=== PATIENT | female | born 1970 | race Caucasian/White ===

== ENCOUNTER → 2023-02-04 09:13 | Outpatient (BNVA) | payer SELFPAY | PROVIDERS: Visit Provider Nurse Practitioner Family | DX: R30.0 Dysuria (principal) | CPT/HCPCS: 81000; 87077; 87086; 87184 ==

== ENCOUNTER → 2023-03-01 12:22 | Outpatient (BNVA) | payer SELFPAY | PROVIDERS: Visit Provider Nurse Practitioner | DX: R39.9 Unspecified symptoms and signs involving the genitourinary system (principal) | CPT/HCPCS: 81000; 87077; 87086; 87184 ==

== ENCOUNTER → 2023-04-28 14:49 | Outpatient (BNVA) | payer SELFPAY | PROVIDERS: Visit Provider Nurse Practitioner Family | DX: R30.0 Dysuria (principal) | CPT/HCPCS: 81000 ==

== ENCOUNTER → 2023-07-09 10:17 | Outpatient (BNVA) | payer SELFPAY | PROVIDERS: Visit Provider Family Medicine | DX: R39.9 Unspecified symptoms and signs involving the genitourinary system (principal); N39.0 Urinary tract infection, site not specified; N30.00 Acute cystitis without hematuria | CPT/HCPCS: 81000 ==

== ENCOUNTER → 2023-08-05 14:14 | Outpatient (BNVA) | payer SELFPAY | PROVIDERS: Visit Provider Emergency Medicine | DX: R30.0 Dysuria (principal); N10 Acute pyelonephritis | CPT/HCPCS: 81000 ==

== ENCOUNTER → 2023-08-10 15:48 | Outpatient (BNVA) | payer SELFPAY | PROVIDERS: Visit Provider Registered Nurse Neonatal Intensive Care | DX: R39.15 Urgency of urination (principal); N30.00 Acute cystitis without hematuria | CPT/HCPCS: 81000; 87077; 87086; 87184 ==

== ENCOUNTER → 2024-04-11 14:27 | Outpatient (BNVA) | payer SELFPAY | DX: R39.9 Unspecified symptoms and signs involving the genitourinary system (principal) | CPT/HCPCS: 81000; 87086 ==

== ENCOUNTER → 2024-07-06 14:25 | Outpatient (BNVA) | payer OTHER, SELFPAY | PROVIDERS: Visit Provider Nurse Practitioner Family | DX: R39.9 Unspecified symptoms and signs involving the genitourinary system (principal) | CPT/HCPCS: 81000 ==

== ENCOUNTER 2024-07-18 19:40 | Emergency (ER) | payer OTHER, SELFPAY ==
[2024-07-18 19:46] VITALS: BP 172/121; PULSE 88; TEMP 37.7; O2SAT 97; BMI 29.8
[2024-07-18 21:53] VITALS: BP 148/92; PULSE 84; O2SAT 97
--- NOTE | 2024-07-18 21:57 | ED_ITS ---
HPI - Headache 2 General: Chief Complaint: Headache Stated Complaint: n/v migrane lap band Time Seen by Provider: 07/18/24 21:33 Source: patient Mode of arrival: ambulatory Limitations: no limitations History of Present Illness: Patient is a 54-year-old female who presents to the emergency department complaining of headache for the past couple of days. Also notes high fevers. She states she had a lap band procedure in 2017, has not thrown up since a couple of days ago when she threw up due to the pain in her head. Notes consistent nausea, however has been able to keep down food and drink. She states the pain wraps around her head like a band, and is behind her eyes. She denies any neck pain or recent trauma. Reporting minor blurred vision, but thinks it may be due to her not getting any sleep from the pain. Pain has been constant, no focal neurological deficits such as paresthesias or paralysis in her extremities. She has taken Tylenol and Benadryl, has not gotten much relief. No known history of migraines or tension headaches. She does not state that anything specifically makes it better, does state it seems to be worsened by noise. Patient is also diabetic. MD elicited complaint: headache Onset description: suddenly Location: band-like Severity: moderate Quality & Timing: throbbing Exacerbating factors: noise Relieving factors: nothing Context: occurred at rest Associated symptoms: Reports fever(s), nausea and vomiting; Deny chest pain, lightheadedness or rash Treatments prior to arrival: acetaminophen and other (Benadryl) Related Data Previous Rx's Medication Instructions Recorded fluconazole 150 mg tablet 150 mg PO Q72H 3 days #1 tab 07/06/24 sulfamethoxazole 800 1 tab PO BID #14 tabs 07/06/24 mg-trimethoprim 160 mg tablet (Bactrim DS) Allergies Allergy/AdvReac Type Severity Reaction Status Date / Time crab Allergy ALGY-Hives Verified 07/18/24 19:51 Penicillins Allergy ALGY-Anaphy Verified 07/18/24 19:51 laxis Review of Systems 2 General: Reports: 10 or more systems reviewed and unremarkable except in HPI and below Const: Reports: fever(s); Denies: chills or fatigue Eyes: Reports: blurry vision ENMT: Denies: throat pain, ear or mastoid pain or nasal discharge Card: Denies: chest pain, palpitations, swelling of feet/ankles or lightheadedness Resp: Denies: dyspnea, productive cough or wheezing GI: Reports: nausea and vomiting; Denies: abdominal pain, diarrhea or constipation : Denies: flank pain, difficulty voiding, dysuria or urinary frequency Musc: Denies: neck pain, back pain or joint pain Skin/Breast: Denies: rash Neuro: Reports: headache(s); Denies: numbness in extremities or weakness in extremities PFSH ED 2 PFSH: Social History Smoking and tobacco/nicotine status: former use of tobacco/nicotine Physical Exam 2 Const: COMMON NORMALS: no acute distress, patient oriented x3 and no limitations GENERAL APPEARANCE: cooperative, comfortable and well developed ORIENTATION/CONSCIOUSNESS: Yes awake, Yes oriented to person, Yes oriented to place and Yes oriented to time HENMT: COMMON NORMALS: normocephalic, atraumatic, hearing grossly normal bilaterally and moist oral mucous membranes HEAD & SCALP: normocephalic and atraumatic Eye: COMMON NORMALS: Equal, round and reactive pupils present, EOMs intact bilaterally and conjunctivae normal CONJUNCTIVA: Yes conjunctivae normal P UPIL: Yes Equal, round and reactive pupils present Neck/C-Spine: COMMON NORMALS: full ROM, supple and no JVD CERVICAL SPINE: Y es cervical ROM normal Resp: COMMON NORMALS: normal respiratory effort, No retractions, No use of accessory muscles and clear to auscultation bilaterally AUSCULTATION: clear to auscultation bilaterally Cardio: COMMON NORMALS: no JVD, regular rate, regular rhythm, No clicks present (Cardio), No murmurs present (Cardio) and No rub (Cardio) RATE: r egular rate RHYTHM: regular rhythm Extremity: COMMON NORMALS: normal to inspection, full ROM and capillary refill normal Neuro: COMMON NORMALS: patient oriented x3, CN's II-XII intact bilaterally, moves all extremities, no focal motor deficits and no sensory deficits noted SENSORIUM/ORIENTATION: Yes oriented to person, Yes oriented to place and Yes oriented to time Skin: COMMON NORMALS: no rashes or lesions noted GENERAL SKIN EXAM: no rashes or lesions noted Course 2 Vital Signs: Vital signs: Vital Signs Temperature 99.9 F H 07/18/24 19:46 Pulse Rate 84 07/18/24 21:53 Blood Pressure 148/92 07/18/24 21:53 Pulse Oximetry 97 07/18/24 21:53 Oxygen Delivery Me thod Room Air 07/18/24 19:46 MDM - Headache Medical Decision Making Patient presented with headache for the past 2 days, neurologically intact on physical exam, she is diabetic. Gave her migraine cocktail, she notes significant improvement. Labs were unremarkable, swab for flu COVID RSV was negative though likely she may have a viral illness due to reported elevated temperatures at home and temp of 99.9 here. Do not suspect anything intracranial, this is likely migraine headache versus tension headache and will have her follow-up with primary care for reevaluation and return with any persistence of headache and we will CT her at that time as indicated. Patient agrees with this plan, discharge at this time. Lab Data 07/18/24 21:45 07/18/24 21:45 Laboratory Results WBC 5.69 10^3/uL (3.29-11.43) 07/18/24 21:45 RBC 5.28 10^6/uL (3.85-5.65) 07/18/24 21:45 Hgb 15.30 g/dL (11.27-16.99) 07/18/24 21:45 Hct 44.1 % (36-47) 07/18/24 21:45 MCV 83.5 fl (85-98) L 07/18/24 21:45 MCH 29.0 pg (27-33) 07/18/24 21:45 MCHC 34.7 g/dL (30-55) 07/18/24 21:45 RDW 12.3 % (12.1-15.1) 07/18/24 21:45 Plt Count 197 10^3/cmm (157-399) 07/18/24 21:45 MPV 10.0 fL (7.4-10.4) 07/18/24 21:45 Neut % (Auto) 87.8 % 07/18/24 21:45 Lymph % (Auto) 7.9 % 07/18/24 21:45 Archuleta % (Auto) 3.9 % 07/18/24 21:45 Eos % (Auto) 0.0 % 07/18/24 21:45 Baso % (Auto) 0.2 % 07/18/24 21:45 Neut # (Auto) 5.00 10^3/uL (1.8-7.7) 07/18/24 21:45 Lymph # (Auto) 0.5 10^3/uL (0.8-4.8) L 07/18/24 21:45 Archuleta # (Auto) 0.2 10^3/uL (0.2-0.9) 07/18/24 21:45 Eos # (Auto) 0.0 10^3/uL (0.0-0.8) 07/18/24 21:45 Baso # (Auto) 0.0 10^3/uL (0.0-0.1) 07/18/24 21:45 Nucleated RBC % (auto) 0 % 07/18/24 21:45 Nucleated RBCs # 0.0 /100WBC 07/18/24 21:45 Sodium 133 mmol/L (136-145) L 07/18/24 21:45 Potassium 3.5 mmol/L (3.5-5.1) 07/18/24 21:45 Chloride 94 mmol/L (98-107) L 07/18/24 21:45 Carbon Dioxide 27 mmol/L (22-29) 07/18/24 21:45 Anion Gap 15.5 (5-19) 07/18/24 21:45 BUN 9 mg/dL (6-20) 07/18/24 21:45 Creatinine 0.5 mg/dL (0.5-0.9) 07/18/24 21:45 GFR Calculation 127.6 mL/min (90-130) 07/18/24 21:45 Glucose 155 mg/dL (65-115) H 07/18/24 21:45 Calculated Osmolality 278 mOsm/kg (285-295) L 07/18/24 21:45 Calcium 9.4 mg/dL (8.5-10.5) 07/18/24 21:45 Total Bilirubin 0.7 mg/dL (0.15-1.2) 07/18/24 21:45 AST 23 U/L (0-32) 07/18/24 21:45 ALT 20 U/L (0-33) 07/18/24 21:45 Alkaline Phosphatase 100 U/L (35-105) 07/18/24 21:45 Total Protein 7.6 g/dL (6.6-8.7) 07/18/24 21:45 Albumin 4.3 g/dL (3.5-5.2) 07/18/24 21:45 Globulin 3.3 g/dL (1.3-4.6) 07/18/24 21:45 Coronavirus (PCR) Negative (Negative) 07/18/24 21:45 Influenza A (PCR) Negative (Negative) 07/18/24 21:45 Influenza Type B (PCR) Negative (Negative) 07/18/24 21:45 RSV (PCR) Negative (Negative) 07/18/24 21:45 No radiology studies performed this visit Discharge Plan Discharge Patient Disposition: Home Clinical Impression: Migraine Qualifiers: Migraine type: unspecified Status migrainosus presence: without status migrainosus Intractability: intractable Qualified Code(s): G43.919 - Migraine, unspecified, intractable, without status migrainosus Condition: Stable Prescriptions: No Action sulfamethoxazole-trimethoprim [Bactrim DS] 800-160 mg tablet 1 tab PO BID Qty: 14 0RF fluconazole 150 mg tablet 150 mg PO Q72H 3 Days Qty: 1 0RF Rx Instructions: Take one tablet today. May repeat in 72hours. Discharge Orders: Discharge ED (Routine); Ordered 07/19/24 Ordered By: Antolin Gagnon Patient Instructions: Acute Headache (ED) Activity Restrictions/Additional Instructions: Continue taking medications at home. Plenty of sleep, plenty of fluids. With any recurrence of your headache or if you are not seeing any improvement, return for reevaluation. Please see attached patient instructions for further education. Coding Level of Care Code ED Director Payment for He Polanco
[2024-07-18 22:04] LABS: Basophils % 0.2 %; Hematocrit 44.1 % (36-47); Lymphocytes # 0.5 10^3/uL (0.8-4.8); Lymphocytes % 7.9 %; Mean Corpuscular HGB Conc 34.7 g/dL (30-55); Mean Corpuscular Volume 83.5 fl (85-98); Monocytes # 0.2 10^3/uL (0.2-0.9); Monocytes % 3.9 %; Neutrophils % 87.8 %; Nucleated Red Blood Cells % 0 %; Platelet Count 197 10^3/cmm (157-399); Red Blood Count 5.28 10^6/uL (3.85-5.65); Red Cell Distribution Width 12.3 % (12.1-15.1); White Blood Count 5.69 10^3/uL (3.29-11.43)
[2024-07-18] MEDS: sodium chloride 0.9% 1,000 ML 999 ML IV (22:04)
[2024-07-18] MEDS: ondansetron 2 mg/ML SDV 2 mL 8 MG IVP (22:04)
[2024-07-18] MEDS: diphenhydrAMINE 50 mg/mL SDV 1mL IVP (22:04)
[2024-07-18] MEDS: ketorolac 60 mg/2 mL INJ 30 MG IVP (22:04)
[2024-07-18] MEDS: dexamethasone 10 mg/mL INJ IVP (22:04)
[2024-07-18 22:15] LABS: Alanine Aminotransferase 20 U/L (0-33); Albumin Level 4.3 g/dL (3.5-5.2); Alkaline Phosphatase 100 U/L (35-105); Anion Gap 15.5 (5-19); Aspartate Amino Transferase 23 U/L (0-32); Blood Urea Nitrogen 9 mg/dL (6-20); Calcium 9.4 mg/dL (8.5-10.5); Carbon Dioxide 27 mmol/L (22-29); Chloride 94 mmol/L (98-107); Creatinine Clr Calc Pharmacy 137.1396; Globulin 3.3 g/dL (1.3-4.6); Glomerular Filtration Rate 127.6 mL/min (90-130); Glucose 155 mg/dL (65-115); Osmolality Calculated 278 mOsm/kg (285-295); Potassium 3.5 mmol/L (3.5-5.1); Sodium 133 mmol/L (136-145); Total Bilirubin 0.7 mg/dL (0.15-1.2); Total Protein 7.6 g/dL (6.6-8.7)
[2024-07-18 22:47] LABS: Covid PCR NEGATIVE (Negative); Influenza A NEGATIVE (Negative); Influenza B NEGATIVE (Negative); Respiratory Syncytial Virus Ce NEGATIVE (Negative)
[2024-07-19] VITALS: BP 152/96; PULSE 67; O2SAT 99
[2024-07-19 00:20] VITALS: BP 157/96; PULSE 67; O2SAT 67
== END 2024-07-19 00:25 | disposition home or self-care (01) ==
PROVIDERS: Emergency Provider Physician Assistant
DX: G43.919 Migraine, unspecified, intractable, without status migrainosus (principal); Z11.52 Encounter for screening for COVID-19; Z87.891 Personal history of nicotine dependence
CPT/HCPCS: 36415; 80053; 85025; 87637; 96374; 96375; 99284; J1100; J1200; J1885; J2405; J7030

== ENCOUNTER → 2024-08-09 14:14 | Outpatient (BNVA) | payer SELFPAY | PROVIDERS: Visit Provider Nurse Practitioner Family | DX: R39.9 Unspecified symptoms and signs involving the genitourinary system (principal); N39.0 Urinary tract infection, site not specified | CPT/HCPCS: 81000 ==

== ENCOUNTER → 2024-08-31 13:22 | Outpatient (BNVA) | payer OTHER, SELFPAY | PROVIDERS: Visit Provider Nurse Practitioner Family | DX: M18.31 Unilateral post-traumatic osteoarthritis of first carpometacarpal joint, right hand (principal) | CPT/HCPCS: 73110 ==

== ENCOUNTER 2024-09-12 14:09 | Outpatient (CLI) | payer OTHER, SELFPAY ==
--- NOTE | 2024-09-12 14:10 | MM_ITS ---
WS: [id number] BILATERAL 3D TOMOSYNTHESIS DIGITAL SCREENING MAMMOGRAPHY WITH CAD CLINICAL INFORMATION: SCREENING HISTORY: Screening mammogram. No current complaints. COMPARISON: None. TECHNIQUE: Bilateral CC and MLO views. FINDINGS: Scattered fibroglandular densities bilaterally. No suspicious focal mass, asymmetry, calcifications, or architectural distortion. No evidence of malignancy. MM/MM scr BI tomosynthesis [id number] IMPRESSION: DENSITY: There are scattered areas of fibroglandular density. BI-RADS: 1 - Negative. FOLLOW UP: 1 Year Follow-up Recommend return to annual screening mammography.
== END 2024-09-12 14:10 | disposition home or self-care (01) ==
PROVIDERS: PCP Family Medicine; Visit Provider Family Medicine
DX: Z12.31 Encounter for screening mammogram for malignant neoplasm of breast (principal); R92.323 Mammographic fibroglandular density, bilateral breasts
CPT/HCPCS: 77063; 77067